=== PATIENT | male | born 1955 | race Caucasian/White ===

== ENCOUNTER 2021-08-08 05:58 | Day surgery (SDC) | payer OTHER ==
[2021-08-01 11:29] VITALS: BMI 36.1
[~2021-08-08 05:58] MED LIST: BUPIVICAINE 0.25%/MORPH PF/KETOROLAC - 51ML DISP.SYRINGE IA ONE; GELATIN, ABSORBABLE 100 EACH SPONGE TP ONE; THROMBIN (BOVINE) 5,000 UNIT VIAL TP ONE
[2021-08-08] MEDS ORDERED: ceFAZolin SODIUM 1 GM VIAL ONE ×5 (07:12→21:33)
[2021-08-08] MEDS ORDERED: THROMBIN (BOVINE) 5,000 UNIT VIAL TP ONE ×2 (07:12→09:17)
[2021-08-08] MEDS ORDERED: MIDAZOLAM HCL 2 MG/2 ML SINGLE DOSE VIAL ONE ×4 (07:47→08:29)
[2021-08-08] MEDS ORDERED: ROPIVACAINE HCL 0.5% 30ML VIAL ONE (07:48)
[2021-08-08] MEDS ORDERED: ONDANSETRON 4 MG/2 ML VIAL IVPUSH PRN ×2 (08:01→10:26)
[2021-08-08] MEDS ORDERED: PROPOFOL 20 ML ONE ×2 (08:07)
[2021-08-08] MEDS ORDERED: LACTATED RINGERS SOLUTION 1,000 ML IV SCH ×2 (08:15→10:30)
[2021-08-08] MEDS ORDERED: BUPIVICAINE 0.25%/MORPH PF/KETOROLAC - 51ML DISP.SYRINGE IA ONE ×3 (08:58→11:00)
[2021-08-08] MEDS ORDERED: GELATIN, ABSORBABLE 100 EACH SPONGE TP ONE (09:17)
[2021-08-08] MEDS ORDERED: TRANEXAMIC ACID 1000 MG/10 ML VIAL ONE (09:36)
[2021-08-08] MEDS ORDERED: oxyCODONE HCL 5 MG TABLET PO PRN (10:24)
[2021-08-08] MEDS ORDERED: TRANEXAMIC ACID 1000 MG/10 ML VIAL IVPUSH ONE (11:00)
[2021-08-08] MEDS ORDERED: CEFAZOLIN 2 GM in DEXTROSE 5%-WATER - 50 ML IVPB ONE (11:00)
[2021-08-08] MEDS ORDERED: CELECOXIB 200 MG CAPSULE PO ONE (11:00)
[2021-08-08] MEDS ORDERED: DEXTROSE 5%-WATER - 50 ML IVPB ONE ×3 (14:49→21:34)
[2021-08-08] MEDS: CEFAZOLIN 2 GM in DEXTROSE 5%-WATER - 50 ML IVPB SCH ×2 (14:59→23:39)
[2021-08-08] MEDS: oxyCODONE HCL 5 MG TABLET PO PRN ×2 (19:01→23:39)
[2021-08-08] MEDS: PANTOPRAZOLE 40 MG TABLET PO SCH (19:08)
[2021-08-08] MEDS: MULTIVITAMINS (DAILY MVI) TABLET (FP) PO SCH (19:08)
[2021-08-08] MEDS ORDERED: ROSUVASTATIN CA 20 MG TABLET PO SCH (22:00)
[2021-08-08] MEDS: SENNOSIDES/DOCUSATE COMBO (SENNA PLUS) TABLET (UD) PO SCH (22:00)
[2021-08-09] MEDS: oxyCODONE HCL 5 MG TABLET PO PRN ×2 (02:52→06:10)
[2021-08-09] MEDS ORDERED: ASPIRIN 325 MG TABLET PO SCH (08:00)
[2021-08-09] MEDS: PANTOPRAZOLE 40 MG TABLET PO SCH (09:06)
[2021-08-09] MEDS: SENNOSIDES/DOCUSATE COMBO (SENNA PLUS) TABLET (UD) PO SCH (09:06)
[2021-08-09] MEDS: MULTIVITAMINS (DAILY MVI) TABLET (FP) PO SCH (09:06)
[2021-08-09 09:08] VITALS: BP 154/79; PULSE 75; TEMP 97.6
[2021-08-09] MEDS ORDERED: VALSARTAN 80 MG TABLET PO SCH (10:00)
== END 2021-08-09 12:19 | disposition home health service (06) ==
LOC: FASUSAT 05:58 → FM/S 11:55 → FASUSAT 08-09 12:19
PROVIDERS: ATTEND Orthopaedic Surgery
PROC: 8E0YXBZ Computer Assisted Procedure of Lower Extremity (ICD-10-PCS; 2021-08-08)
PROC: 8E0Y0CZ Robotic Assisted Procedure of Lower Extremity, Open Approach (ICD-10-PCS; 2021-08-08)
PROC: 0SRD0L9 Replacement of Left Knee Joint with Medial Unicondylar Synthetic Substitute, Cemented, Open Approach (ICD-10-PCS; principal; 2021-08-08 08:38)
DX: M17.12 Unilateral primary osteoarthritis, left knee (principal)
CPT/HCPCS: 20985; 27446; C1776; S2900; 73560-TC-LT-FY; 94760; 97010-GP; 97116-GP; 97162-GP

== ENCOUNTER 2023-03-28 06:19 | Day surgery (SDC) | payer OTHER ==
[2023-03-25 16:03] VITALS: BMI 34.2
[2023-03-28 06:50] VITALS: RESP 18
[2023-03-28] MEDS ORDERED: LIDOCAINE HCL 1%, 10 MG/ML (20ML VIAL) ONE (07:10)
[2023-03-28] MEDS ORDERED: LIDOCAINE HCL/PF 2% SDV 5ML VIAL ONE (07:10)
[2023-03-28] MEDS ORDERED: PROPOFOL 20 ML ONE (07:10)
[2023-03-28] MEDS ORDERED: MIDAZOLAM HCL 2 MG/2 ML SINGLE DOSE VIAL ONE (07:11)
[2023-03-28] MEDS ORDERED: BUPIVACAINE HCL/PF 0.5% (5MG/ML) 10 ML VIAL ONE (07:11)
[2023-03-28] MEDS ORDERED: ceFAZolin SODIUM 1 GM VIAL ONE (08:15)
[2023-03-28] MEDS ORDERED: DEXAMETHASONE SOD PHOSPHATE 4 MG/1 ML VIAL ONE (08:15)
[2023-03-28] MEDS ORDERED: ONDANSETRON 4 MG/2 ML VIAL ONE (08:15)
[2023-03-28] MEDS ORDERED: KETOROLAC TROMETHAMINE 30 MG/1 ML VIAL ONE (08:15)
[2023-03-28 09:12] VITALS: TEMP 97
[2023-03-28 10:48] VITALS: BP 120/80; PULSE 61
== END 2023-03-28 10:00 | disposition home or self-care (01) ==
LOC: FASU 06:19
PROVIDERS: ATTEND Orthopaedic Surgery
PROC: 0LN80ZZ Release Left Hand Tendon, Open Approach (ICD-10-PCS; principal; 2023-03-28 08:30)
DX: M65.332 Trigger finger, left middle finger (principal)
CPT/HCPCS: 88304-TC